=== PATIENT | male | born 1990 | race African-American/Black ===

== ENCOUNTER 2022-10-28 20:47 | Emergency (ER) | payer SELFPAY ==
[2022-10-28] MEDS ORDERED: Colchicine 0.6 MG Tab PO ONE (21:31)
[2022-10-28 22:05] LABS: BASOPHILS ABSOLUTE AUTO 0.03 K/mm3 (0.01-0.08); BASOPHILS PERCENT AUTO 0.3 % (0.1-1.2); EOSINOPHILS ABSOLUTE AUTO 0.32 K/mm3 (0.04-0.54); HEMATOCRIT 46.7 % (40.1-51.0); HEMOGLOBIN 15.2 gm/dl (13.7-17.5); IMMATURE GRAN ABSOLUTE AUTO 0.02 K/mm3 (0.00-0.10); IMMATURE GRAN PERCENT AUTO 0.2 % (<=1.0); LYMPHOCYTES ABSOLUTE AUTO 1.92 K/mm3 (1.32-3.57); MEAN CORPUSCULAR HEMOGLOBIN 29.9 pg (25.7-32.2); MEAN CORPUSCULAR HGB CONC 32.5 g/dl (32.2-35.5); MEAN CORPUSCULAR VOLUME 91.7 fl (79.0-92.2); MEAN PLATELET VOLUME 9.9 fl (9.4-12.3); MONOCYTES ABSOLUTE AUTO 1.13 K/mm3 (0.30-0.82); MONOCYTES PERCENT AUTO 10.6 % (5.3-12.2); NEUTROPHILS ABSOLUTE AUTO 7.26 K/mm3 (1.78-5.38); NEUTROPHILS PERCENT AUTO 67.9 % (34.0-67.9); PLATELET COUNT,PLT 255 K/mm3 (163-337); RED BLOOD CELL COUNT 5.09 M/mm3 (4.63-6.08); WHITE BLOOD CELL COUNT,WBC 10.68 K/mm3 (4.23-9.07)
[2022-10-28 22:28] LABS: A/G RATIO 0.8 (1-2); ALBUMIN 3.2 g/dl (3.4-5.0); ANION GAP 11.8 (5-15); BILIRUBIN TOTAL 0.7 mg/dL (0.2-1.0); C-REACTIVE PROTEIN 5.8 mg/dL (<1.0); CALCIUM 8.3 mg/dL (8.5-10.1); EST CRCL DRUG DOSING (CG) 117.63 mL/min; POTASSIUM,K 3.8 mEq/L (3.5-5.1); PROTEIN TOTAL,TP 7.1 g/dl (6.4-8.2)
[2022-10-29] MEDS ORDERED: Lidocaine 1% 10 ML MDV INJECT ONE (00:14)
[2022-10-29] MEDS ORDERED: cefTRIAXone 1 GM in Sodium Chloride 0.9% 100 ML IV ONE (00:15)
[2022-10-29] MEDS ORDERED: Colchicine 0.6 MG Tab PO ONE (00:54)
== END 2022-10-29 01:31 | disposition home or self-care (01) ==
LOC: JD.ED 20:47
DX: M25.562 Pain in left knee (principal); Z72.0 Tobacco use
CPT/HCPCS: 20610; 36415; 73562; 80053; 84550; 85025; 85652; 86140; 87040; 96365; 99283; A9270; J0696; J3490